=== PATIENT | female | born 1955 | race Caucasian/White ===

== ENCOUNTER 2017-03-04 06:40 | Day surgery (SDC) | payer BC ==
--- NOTE | ~2017-03-04 | EGD ---
EGD REPORT [facility] [address] [place] [place] [address] NAME: CYNTHIA ESTRADA : [birth year] STATUS : REG [facility]#: [id number] AGE: 61 ADM/REG DATE : 03/04/17 MR#: [id number] REPORT SERV DATE: 03/04/17 DICTATED BY: MAEVE CORTEZ DATE: 03/04/17 REPORT STATUS : Draft TRANSCRIBED BY: [employer] DATE: 03/04/17 [facility] Center Patient Name: Cynthia Estrada Date of : 1955 Attending MD: MAEVE CORTEZ MD Procedure Date No Time: 03/04/2017 Procedure: Colonoscopy Indications: High risk colon cancer surveillance: Personal history of colonic polyps Referring MD: AMIE PALMA Medicines: as per anesthesia Complications: No immediate complications. Procedure: Pre-Anesthesia Assessment: - ASA Grade Assessment: II - A patient with mild systemic disease. After I obtained informed consent, the scope was passed under direct vision. Throughout the procedure, the patient's blood pressure, pulse, and oxygen saturations were monitored continuously. The PCF [id number] was introduced through the anus and advanced to the cecum, identified by appendiceal orifice and ileocecal valve. The colonoscopy was performed without difficulty. The patient tolerated the procedure. The quality of the bowel preparation was adequate to identify polyps. Findings: The perianal and digital rectal examinations were normal. A few small and large-mouthed diverticula were found in the sigmoid colon and in the descending colon. Internal hemorrhoids were found during endoscopy and were mild. Impression: - Diverticulosis in the sigmoid colon and in the descending colon. - Internal hemorrhoids. Recommendation: - Repeat colonoscopy in 5 years for surveillance. Procedure Code(s): --- Professional --- 32562, Colonoscopy, flexible, proximal to splenic flexure; diagnostic, with or without collection of specimen(s) by brushing or washing, with or without colon decompression (separate procedure) Diagnosis Code(s): --- Professional --- K64.8, Other hemorrhoids EGD REPORT [facility] [address] [place]. [address] NAME: CYNTHIA ESTRADA : [birth year] STATUS : REG [facility]#: [id number] AGE: 61 ADM/REG DATE : 03/04/17 MR#: [id number] REPORT SERV DATE: 03/04/17 DICTATED BY: MAEVE CORTEZ DATE: 03/04/17 REPORT STATUS : Draft TRANSCRIBED BY: [employer] DATE: 03/04/17 K57.30, Diverticulosis of large intestine without perforation or abscess without bleeding Z86.010, Personal history of colonic polyps CPT copyright 2013 [employer]. All rights reserved. The codes documented in this report are preliminary and upon reduction furnace operator review may be revised to meet current compliance requirements. MAEVE CORTEZ MD 03/04/2017 8:41 AM This report has been signed electronically. Number of Addenda: 0 Note Initiated On: 03/04/2017 8:12 AM Scope Withdrawal Time 0 hours 5 minutes 1 second [address] [place] [address]
[~2017-03-04 06:40] MED LIST: MULTIPLE VIT PO; PREMPRO1 TA2 PO
== END 2017-03-04 23:59 | disposition home or self-care (01) ==
LOC: DMU 06:40
PROVIDERS: Internal Medicine Gastroenterology
PROC: 0DJD8ZZ Inspection of Lower Intestinal Tract, Via Natural or Artificial Opening Endoscopic (ICD-10-PCS; principal; 2017-03-04 08:00)
DX: Z12.11 Encounter for screening for malignant neoplasm of colon (principal); K64.8 Other hemorrhoids; D64.9 Anemia, unspecified; K57.30 Diverticulosis of large intestine without perforation or abscess without bleeding; F17.210 Nicotine dependence, cigarettes, uncomplicated; J30.2 Other seasonal allergic rhinitis; Z86.010 Personal history of colon polyps